=== PATIENT | male | born 1975 ===

== ENCOUNTER 2025-05-19 18:32 | Emergency (ER) | payer OTHER ==
[~2025-05-19] VITALS: Ht 175.3 cm; Wt 102.1 kg
== END 2025-05-19 20:19 | disposition home or self-care (01) ==
LOC: ER 18:32
DX: S29.9XXA Unspecified injury of thorax, initial encounter (principal); V89.2XXA Person injured in unspecified motor-vehicle accident, traffic, initial encounter
CPT/HCPCS: 93005; 93010; 99284-25

== ENCOUNTER 2025-05-22 11:27 | Emergency (ER) | payer OTHER ==
[~2025-05-22] VITALS: Ht 175.3 cm; Wt 102.1 kg
[2025-05-22] MEDS ORDERED: Ketorolac Tromethamine 15mg Vial IM ONE (12:35)
== END 2025-05-22 12:48 | disposition home or self-care (01) ==
LOC: ER 11:27
DX: S20.212A Contusion of left front wall of thorax, initial encounter (principal); Z53.29 Procedure and treatment not carried out because of patient's decision for other reasons; V89.2XXA Person injured in unspecified motor-vehicle accident, traffic, initial encounter
CPT/HCPCS: 99281